=== PATIENT | female | born 1985 | race African-American/Black ===

== ENCOUNTER 2019-11-17 18:48 | Emergency (ER) | payer BC ==
[~2019-11-17] VITALS: Ht 167.6 cm; Wt 80.3 kg
[2019-11-17 19:08] VITALS: BP_SYST 138
--- NOTE | 2019-11-17 22:58 | NUR ---
[facility] to ER [facility] for [facility]. Side rails up. Report given to ZONIA ALLISON.
--- NOTE | 2019-11-17 23:34 | NUR ---
ER Dr. Joy at bedside examining patient.
--- NOTE | 2019-11-17 23:46 | NUR ---
flu swab and rapid step obtained and sent to lab
--- NOTE | 2019-11-17 23:47 | NUR ---
Patient brought complaining of fever x 3 days with chills, cough and body aches. Patient reports taking OTC medications with no relief. Denies any nausea, vomiting or diarrhea. No other complaints/injuries per patient or as noted. Will continue to monitor.
[2019-11-17 23:52] LABS: INFLUENZA A&B ANTIGEN SCREEN NEGATIVE FOR A & B (NEGATIVE)
[2019-11-17 23:55] LABS: STREPTOCOCCUS A SCREEN (RAPID) NEGATIVE (NEGATIVE)
--- NOTE | 2019-11-18 00:40 | NUR ---
Patient given written and verbal discharge instructions and verbalizes understanding. ER MD discussed with patient the results and treatment provided. Patient in stable condition. ID arm band removed. Rx of Tamiflu,Zithromax given. Patient educated on pain management and to follow up with PMD. Pain Scale 0/10. Opportunity for questions provided and answered. Medication side effect fact sheet provided.
[2019-11-18 00:41] VITALS: BP_SYST 125
== END 2019-11-18 00:41 | disposition home or self-care (01) ==
LOC: SED 18:48
DX: J40 Bronchitis, not specified as acute or chronic (principal); J11.1 Influenza due to unidentified influenza virus with other respiratory manifestations
CPT/HCPCS: 36415; 71046-TC; 86403; 86710; 87081; 93005; 99285